=== PATIENT | male | born 1970 | race Caucasian/White ===

== ENCOUNTER 2017-08-28 21:00 | Inpatient (IN) | payer BC ==
[~2017-08-28] VITALS: Ht 180.3 cm; Wt 100.1 kg
[2017-08-28 21:02] VITALS: BP 140/88; PULSE 102; RESP 16; TEMP 98.9; O2SAT 98
[2017-08-28] MEDS ORDERED: MORPHINE SULFATE 4 MG/ML INJ IV PUSH ONE (22:30)
[2017-08-28] MEDS ORDERED: ONDANSETRON HCL 4 MG/2 ML VIAL IV ONE (22:30)
[2017-08-28] MEDS ORDERED: LIDOCAINE HCL 1% 50 ML VIAL INFIL ONE (22:30)
[2017-08-28] MEDS ORDERED: SODIUM CHLOR 0.9% 1000 ML INJ 1,000 ML IV ONE (22:30)
[2017-08-28] MEDS ORDERED: NEXI40CA PO (22:31)
[2017-08-28] MEDS ORDERED: DICL75TA PO (22:31)
[2017-08-28] MEDS ORDERED: ANDR1GEL2 TOPICAL (22:31)
[2017-08-28] MEDS ORDERED: DOXY1CAP74 PO (22:31)
[2017-08-28] MEDS ORDERED: MULT1TAB64 (22:31)
[2017-08-28] MEDS ORDERED: GLUC500C36 (22:31)
[2017-08-28] MEDS ORDERED: DICY20TA10 PO (22:31)
[2017-08-28] MEDS ORDERED: PRAV40TA2 PO (22:31)
[2017-08-28] MEDS ORDERED: KRIL1CAP10 (22:31)
[2017-08-28] MEDS ORDERED: BACT800T5 PO (22:31)
--- NOTE | 2017-08-28 23:02 | PD ---
HPI Chief Complaint: Cold / Flu Symptoms Time Seen by Provider: 22:15 Travel History International Travel<30 days: No Contact w/Intl Traveler<30days: No Traveled to known affect area: No History of Present Illness HPI Is a 47-year-old man who presents to the emergency department complaining of right elbow pain redness and swelling. He saw his doctor for 5 days ago and was diagnosed with a olecranon bursitis felt to be septic. He is been on Bactrim. He is also doctor in 2 days ago was placed on doxycycline. He had progressive worsening pain redness and swelling in the area, swelling started affect the arm itself. Today he started getting myalgias chills and fever. We' ll do nausea. No other complaints. History Past Medical History Narrative Medical Hyperlipidemia Tetanus Vaccination: < 5 Years Influenza Vaccination: Yes Past Surgical History Surgical History: No Previous Surgery Social History Alcohol Use: Yes (daily) Tobacco Use: No Allergies-Medications (Allergen,Severity, Reaction): Coded Allergies: atorvastatin (Verified Allergy, Unknown, hives, 08/28/17) ciprofloxacin (Verified Allergy, Unknown, facial swelling, 08/28/17) gluten (Verified Adverse Reaction, Unknown, 08/28/17) Reported Meds & Prescriptions Reported Meds & Active Scripts Active Reported Centrum Silver Men Tablet (Multivit-Min/FA/Lycopen/Lutein) 300 Mcg-600 Mcg-300 Mcg Tablet Glucosamine & Chondroitin Cap (Glucosa Sanchez 2Kcl/Chondroitin Sanchez) 500 Mg-400 Mg Capsule Krill Oil [place]-3 500 mg (Krill Oil) 500 Mg-115 Mg-30 Mg-64 Mg-167 Mg Cap Dicyclomine (Dicyclomine HCl) 20 Mg Tab 20 Mg PO Androgel Topical (Testosterone) 50 Mg/5 Gram (1 %) Gel 50 Mg TOPICAL DAILY Apply in the morning to the thighs. Nexium (Esomeprazole DR) 40 Mg Capdr 40 Mg PO DAILY Pravastatin 40 Mg Tab 40 Mg PO DAILY Diclofenac Sodium DR (Diclofenac Sodium) 75 Mg Tabdr 75 Mg PO BID Bactrim DS (Sulfamethoxazole-Trimethoprim) 800-160 Mg Tab 1 Tab PO BID Doxycycline 40 Mg Cap 100 Mg PO BID Review of Systems Except as stated in HPI: all other systems reviewed are Neg Physical Exam Narrative GENERAL: Well-appearing 47-year-old man, no acute distress. SKIN: Focused skin assessment warm/dry. HEAD: Atraumatic. Normocephalic. EYES: Pupils equal and round. No scleral icterus. No injection or drainage. ENT: No nasal bleeding or discharge. Mucous membranes pink and moist. NECK: Trachea midline. No JVD. CARDIOVASCULAR: Regular rate and rhythm. No murmur appreciated. RESPIRATORY: No accessory muscle use. Clear to auscultation. Breath sounds equal bilaterally. GASTROINTESTINAL: Abdomen soft, non-tender, nondistended. Hepatic and splenic margins not palpable. MUSCULOSKELETAL: No obvious deformities. Focal swelling of the olecranon bursa was some fluctuance with surrounding erythema redness and warmth extending into the proximal forearm within the brachium itself. Full range of motion without evidence of septic arthritis. NEUROLOGICAL: Awake and alert. No obvious cranial nerve deficits. Motor grossly within normal limits. Normal speech. PSYCHIATRIC: Appropriate mood and affect; insight and judgment normal. Data Data Last Documented VS Vital Signs Date Time Temp Pulse Resp B/P (MAP) Pulse Ox O2 Delivery O2 Flow Rate FiO2 08/28/17 21:02 98.9 102 16 140/88 (105) 98 Room Air Orders Orders Complete Blood Count With Diff (08/28/17 22:23) Comprehensive Metabolic Panel (08/28/17 22:23) Westergren Sedimentation Rate (08/28/17 22:23) C-Reactive Protein (Crp) (08/28/17 22:23) Synovial Fl Cell Count + Diff (08/28/17 22:23) Fluid Culture And Gram Stain (08/28/17 22:23) Iv Access Insert/Monitor (08/28/17 22:23) Sodium Chlor 0.9% 1000 Ml Inj (Ns 1000 M (08/28/17 22:30) Morphine Inj (Morphine Inj) (08/28/17 22:30) Ondansetron Inj (Zofran Inj) (08/28/17 22:30) Lidocaine 1% Inj (50 Ml) (Xylocaine 1% I (08/28/17 22:30) Clindamycin Inj (Cleocin Inj) (08/29/17 00:15) Admit Order (Ed Use Only) (08/29/17 ) Labs Laboratory Tests Test 08/28/17 22:50 08/28/17 23:00 White Blood Count 7.5 TH/MM3 Red Blood Count 4.64 MIL/MM3 Hemoglobin 14.5 GM/DL Hematocrit 42.6 % Mean Corpuscular Volume 91.7 FL Mean Corpuscular Hemoglobin 31.1 PG Mean Corpuscular Hemoglobin Concent 34.0 % Red Cell Distribution Width 13.5 % Platelet Count 238 TH/MM3 Mean Platelet Volume 7.5 FL Neutrophils (%) (Auto) 66.6 % Lymphocytes (%) (Auto) 21.1 % Monocytes (%) (Auto) 10.1 % Eosinophils (%) (Auto) 1.6 % Basophils (%) (Auto) 0.6 % Neutrophils # (Auto) 5.0 TH/MM3 Lymphocytes # (Auto) 1.6 TH/MM3 Monocytes # (Auto) 0.8 TH/MM3 Eosinophils # (Auto) 0.1 TH/MM3 Basophils # (Auto) 0.0 TH/MM3 CBC Comment DIFF FINAL Differential Comment Erythrocyte Sedimentation Rate 9 mm/hr Blood Urea Nitrogen 14 MG/DL Creatinine 1.12 MG/DL Random Glucose 101 MG/DL Total Protein 7.5 GM/DL Albumin 3.8 GM/DL Calcium Level 8.7 MG/DL Alkaline Phosphatase 71 U/L Aspartate Amino Transf (AST/SGOT) 12 U/L Alanine Aminotransferase (ALT/SGPT) 19 U/L Total Bilirubin 0.4 MG/DL Sodium Level 136 MEQ/L Potassium Level 4.4 MEQ/L Chloride Level 103 MEQ/L Carbon Dioxide Level 27.2 MEQ/L Anion Gap 6 MEQ/L Estimat Glomerular Filtration Rate 71 ML/MIN C-Reactive Protein 8.80 MG/DL [facility] Medical Decision Making Medical Screen Exam Complete: Yes Emergency Medical Condition: Yes Interpretation(s) LABS: CBC is unremarkable ESR is 9 CMP is unremarkable CRP 8.8 Differential Diagnosis Septic bursitis, cellulitis, infection, DVT, other Narrative Course Medical decision making This a 47-year-old man who presents emergency Department with septic bursitis with progressive worsening cellulitis. On outpatient miotics. Not improving. I drained the bursa here. Minimal fluid output. Took 2 or 3 sticks. Sent for culture. Procedures Procedure Narrative Aspiration of right olecranon bursa: The area was prepped with iodine. It was anesthetized 1% lidocaine plain. Using a 16-gauge needle, approximately 1 mL of bloody aspirate was obtained. Took total of 3 sticks and fluid was a little bit bloody. Patient tolerated overall well. Diagnosis Primary Impression: Septic bursitis of elbow Admitting Information Admitting Physician Requests: Admit Jerry Hardy MD Aug 28, 2017 23:02
[2017-08-28 23:34] LABS: BASOPHIL % 0.6 % (0.0-2.0); EOSINOPHIL # 0.1 TH/MM3 (0-0.4); EOSINOPHIL % 1.6 % (0.0-4.0); HEMATOCRIT 42.6 % (39.0-51.0); HEMO FLAGS DIFF FINAL; LYMPH % 21.1 % (9.0-44.0); LYMPHOCYTE # 1.6 TH/MM3 (1.0-4.8); MEAN CELL VOLUME 91.7 FL (80.0-100.0); MEAN CORPUSCULAR HEMOGLOBIN 31.1 PG (27.0-34.0); MONO % 10.1 % (0.0-8.0); NEUT % 66.6 % (16.0-70.0); PLATELET COUNT 238 TH/MM3 (150-450); RED BLOOD COUNT 4.64 MIL/MM3 (4.50-5.90); RED CELL DISTRIBUTION WIDTH 13.5 % (11.6-17.2); WHITE BLOOD COUNT 7.5 TH/MM3 (4.0-11.0)
[2017-08-28 23:55] LABS: ANION GAP 6 MEQ/L (5-15); AST (GOT) 12 U/L (15-37); BICARBONATE 27.2 MEQ/L (21.0-32.0); BLOOD UREA NITROGEN 14 MG/DL (7-18); CHLORIDE 103 MEQ/L (98-107); GLOMERULAR FILTRATION RATE 71 ML/MIN (>89); POTASSIUM 4.4 MEQ/L (3.5-5.1); SODIUM (NA) 136 MEQ/L (136-145)
[2017-08-28 23:58] LABS: ALKALINE PHOSPHATASE 71 U/L (45-117); ALT (GPT) 19 U/L (12-78); TOTAL BILIRUBIN ADULT 0.4 MG/DL (0.2-1.0)
[2017-08-29] VITALS (7 sets, daily range): BP systolic 100–132; BP diastolic 64–88; PULSE 70–99; RESP 16–18; TEMP 97.7–98.9; O2SAT 94–97
[2017-08-29] MEDS ORDERED: BISACODYL 10 MG SUPP RECTAL PRN (00:15)
[2017-08-29] MEDS ORDERED: SODIUM CHLORIDE 0.9% FLUSH 10 ML FLUSH IV FLUSH PRN (00:15)
[2017-08-29] MEDS ORDERED: ACETAMINOPHEN 325 MG TAB PO PRN (00:15)
[2017-08-29] MEDS ORDERED: ACETAMINOPHEN/HYDROcodone 325 MG/5 MG TAB PO PRN (00:15)
[2017-08-29] MEDS ORDERED: SODIUM CHLOR 0.9% 1000 ML INJ 1,000 ML IV ONE (00:15)
[2017-08-29] MEDS ORDERED: MAGNESIUM HYDROXIDE SUSP 30 ML CUP PO PRN (00:15)
[2017-08-29] MEDS ORDERED: LACTULOSE SYRUP 20 GM/30 ML CUP PO PRN (00:15)
[2017-08-29] MEDS ORDERED: CLINDAMYCIN INJ 600 MG in SODIUM CHLORIDE 0.9% INJ 100 ML IV ONE (00:15)
[2017-08-29] MEDS: MORPHINE SULFATE 4 MG/ML INJ IV PUSH PRN ×5 (00:59→22:43)
--- NOTE | 2017-08-29 01:10 | HHI.HP ---
[facility] Raymon Wolfe M.D. Admission Diagnosis cellulitis failing outpatient therapy, septic bursitis Diagnoses: (1) Septic bursitis of elbow Diagnosis: Principal (2) Failure of outpatient treatment Diagnosis: Principal (3) Dehydration Diagnosis: Principal Travel History International Travel<30 Days: No Contact w/Intl Traveler <30 Da: No Traveled to Known Affected Are: No History of Present Illness This is a 47-year-old male with a PMH of Hyperlipidemia presented to the ER with complaints of right elbow pain, redness and swelling for approx 1wk. Seen by PCP for similar symptoms approx 5 days ago and was started on Bactrim for Septic Olecranon Bursitis. Had ongoing pain/redness, seen again by PCP and switched to Doxycycline, however reports no significant improvement. Today, pt noted subjective fever/chills and instructed to come to ER for further evaluation. On arrival, BP 140/88, HR 102, O2 sat 98% on RA, Afebrile. CBC unremarkable. Chemistry essentially unremarkable except for GFR 71. CRP 8.8. ESR 9. S/p Joint aspiration in ER, results pending and s/p Clinda IV. Review of Systems Except as stated in HPI: all other systems reviewed are Neg ROS: 14 point review of systems otherwise negative. Past Family Social History Past Medical History PMH: Hyperlipidemia Past Surgical History PAST SURGICAL HISTORY: None Allergies: Coded Allergies: atorvastatin (Verified Allergy, Unknown, hives, 08/28/17) ciprofloxacin (Verified Allergy, Unknown, facial swelling, 08/28/17) gluten (Verified Adverse Reaction, Unknown, 08/28/17) Family History PAST FAMILY HISTORY: Reviewed. No h/o DM or CAD Social History PAST SOCIAL HISTORY: Positive for a cough. Negative for tobacco or drugs. Physical Exam Vital Signs Vital Signs Date Time Temp Pulse Resp B/P (MAP) Pulse Ox O2 Delivery O2 Flow Rate FiO2 08/29/17 00:14 98.9 86 16 118/67 (84) 94 Room Air 08/28/17 21:02 98.9 102 16 140/88 (105) 98 Room Air Physical Exam PE: GENERAL: Pleasant young white male in no acute distress. HEENT: PERRLA, EOMI. No scleral icterus or conjunctival pallor. No lid lag or facial droop. CARDIOVASCULAR: Regular rate and rhythm. No obvious murmurs to auscultation. No chest tenderness to palpation. RESPIRATORY: No obvious rhonchi or wheezing. Clear to auscultation. Breath sounds equal bilaterally. GASTROINTESTINAL: Abdomen soft, non-tender, nondistended. BS normal. MUSCULOSKELETAL: Extremities without clubbing, cyanosis, or edema. No obvious deformities. Right elbow swelling/erythema, mildly decreased ROM due to pain. NEUROLOGICAL: Awake, alert and oriented x4. No focal neurologic deficits. Moving both upper and lower extremities spontaneously. Laboratory Laboratory Tests Test 08/28/17 22:50 08/28/17 23:00 White Blood Count 7.5 Red Blood Count 4.64 Hemoglobin 14.5 Hematocrit 42.6 Mean Corpuscular Volume 91.7 Mean Corpuscular Hemoglobin 31.1 Mean Corpuscular Hemoglobin Concent 34.0 Red Cell Distribution Width 13.5 Platelet Count 238 Mean Platelet Volume 7.5 Neutrophils (%) (Auto) 66.6 Lymphocytes (%) (Auto) 21.1 Monocytes (%) (Auto) 10.1 Eosinophils (%) (Auto) 1.6 Basophils (%) (Auto) 0.6 Neutrophils # (Auto) 5.0 Lymphocytes # (Auto) 1.6 Monocytes # (Auto) 0.8 Eosinophils # (Auto) 0.1 Basophils # (Auto) 0.0 CBC Comment DIFF FINAL Differential Comment Erythrocyte Sedimentation Rate 9 Blood Urea Nitrogen 14 Creatinine 1.12 Random Glucose 101 Total Protein 7.5 Albumin 3.8 Calcium Level 8.7 Alkaline Phosphatase 71 Aspartate Amino Transf (AST/SGOT) 12 Alanine Aminotransferase (ALT/SGPT) 19 Total Bilirubin 0.4 Sodium Level 136 Potassium Level 4.4 Chloride Level 103 Carbon Dioxide Level 27.2 Anion Gap 6 Estimat Glomerular Filtration Rate 71 C-Reactive Protein 8.80 Date/Time Source Procedure Growth Status 08/28/17 23:00 Fluid Synovial Fluid Gram Stain Pending Received 08/28/17 23:00 Fluid Synovial Fluid Body Fluid Culture Pending Received Result Diagram: 08/28/17224908/28/172249 Caprini VTE Risk Assessment Caprini VTE Risk Assessment: No/Low Risk (score <= 1) Caprini Risk Assessment Model Point Value = 1 Point Value = 2 Point Value = 3 Point Value = 5 Age 41-60 Minor surgery BMI > 25 kg/m2 Swollen legs Varicose veins or History of unexplained or recurrent spontaneous Oral contraceptives or hormone replacement Sepsis (< 1 month) Serious lung disease, including pneumonia (< 1 month) Abnormal pulmonary function Acute myocardial infarction Congestive heart failure (< 1 month) History of inflammatory bowel disease Medical patient at bed rest Age 61-74 Arthroscopic surgery Major open surgery (> 45 min) Laparoscopic surgery (> 45 min) Malignancy Confined to bed (> 72 hours) Immobilizing plaster cast Central venous access Age >= 75 History of VTE Family history of VTE Factor V Leiden Prothrombin [id number] Lupus anticoagulant Anticardiolipin antibodies Elevated serum homocysteine Heparin-induced thrombocytopenia Other congenital or acquired thrombophilia Stroke (< 1 month) Elective arthroplasty Hip, pelvis, or leg fracture Acute spinal cord injury (< 1 month) Prophylaxis Regimen Total Risk Factor Score Risk Level Prophylaxis Regimen 0-1 Low Early ambulation 2 Moderate Order ONE of the following: *Sequential Compression Device (SCD) *Heparin 5000 units SQ BID 3-4 Higher Order ONE of the following medications: *Heparin 5000 units SQ TID *Enoxaparin/Lovenox 40 mg SQ daily (WT < 150 kg, CrCl > 30 mL/min) *Enoxaparin/Lovenox 30 mg SQ daily (WT < 150 kg, CrCl > 10-29 mL/min) *Enoxaparin/Lovenox 30 mg SQ BID (WT < 150 kg, CrCl > 30 mL/min) AND/OR *Sequential Compression Device (SCD) 5 or more Highest Order ONE of the following medications: *Heparin 5000 units SQ TID (Preferred with Epidurals) *Enoxaparin/Lovenox 40 mg SQ daily (WT < 150 kg, CrCl > 30 mL/min) *Enoxaparin/Lovenox 30 mg SQ daily (WT < 150 kg, CrCl > 10-29 mL/min) *Enoxaparin/Lovenox 30 mg SQ BID (WT < 150 kg, CrCl > 30 mL/min) AND *Sequential Compression Device (SCD) Assessment and Plan Problem List: (1) Septic bursitis of elbow ICD Code: M71.129 - Other infective bursitis, unspecified elbow Status: Acute (2) Failure of outpatient treatment ICD Code: Z78.9 - Other specified health status (3) Dehydration ICD Code: E86.0 - Dehydration Assessment and Plan A/P: 1. Septic Bursitis: Right Elbow, ongoing redness/swelling, s/p Joint Aspiration in ER and Clinda IV, follow up results, continue IV Abx, Consult Ortho for further eval/recommendations. CRP 8.80, will trend. ESR normal. 2. Failed Outpatient Tx: started on Bactrim approx 5 days ago w/ no improvement, then switched to Doxycycline. Will continue w/ IV Clinda as above. 3. Dehydration: GFR 71, BUN/Creat normal. IVF for hydration, repeat labs in am. 4. DVT Prophylaxis: SCD/TEds. 5. Social work for d/c planning as needed. 6. Case discussed w/ ER physician at length Physician Certification 2 Midnight Certification Type: Admission for Inpatient Services Order for Inpatient Services The services are ordered in accordance with Medicare regulations or non- Medicare payer requirements, as applicable. In the case of services not specified as inpatient-only, they are appropriately provided as inpatient services in accordance with the 2-midnight benchmark. Estimated LOS (days): 2 days is the estimated time the patient will need to remain in the hospital, assuming treatment plan goals are met and no additional complications. Post-Hospital Plan: Not yet determined Lori Sierra MD Aug 29, 2017 01:10
[2017-08-29 01:13] LABS: WBC, SYNOVIAL FLUID 4000 /MM3 (0-200)
[2017-08-29] MEDS: ONDANSETRON HCL 4 MG/2 ML VIAL IVP PRN (02:21)
[2017-08-29] MEDS: SODIUM CHLORIDE 0.9% FLUSH 10 ML FLUSH IV FLUSH SCH ×2 (08:29→22:41)
[2017-08-29] MEDS: CLINDAMYCIN INJ 900 MG in SODIUM CHLORIDE 0.9% INJ 100 ML IV SCH ×2 (08:29→16:33)
[2017-08-29 08:34] LABS: RED BLOOD COUNT 4.24 MIL/MM3 (4.50-5.90); WHITE BLOOD COUNT 6.4 TH/MM3 (4.0-11.0)
[2017-08-29 08:35] LABS: AUTOMATED NEUTROPHIL # 3.4 TH/MM3 (1.8-7.7); BASOPHIL % 0.7 % (0.0-2.0); EOSINOPHIL # 0.2 TH/MM3 (0-0.4); EOSINOPHIL % 2.4 % (0.0-4.0); HEMATOCRIT 39.1 % (39.0-51.0); HEMO FLAGS DIFF FINAL; LYMPH % 31.1 % (9.0-44.0); MEAN CELL VOLUME 92.2 FL (80.0-100.0); MEAN CORPUSCULAR HEMOGLOBIN 31.4 PG (27.0-34.0); MEAN CORPUSCULAR HGB CONC 34.1 % (32.0-36.0); MONO % 12.4 % (0.0-8.0); NEUT % 53.4 % (16.0-70.0); PLATELET COUNT 209 TH/MM3 (150-450); RED CELL DISTRIBUTION WIDTH 12.8 % (11.6-17.2)
[2017-08-29] MEDS: PANTOPRAZOLE SOD 40 MG DELAYED RELEASE TAB PO SCH (08:36)
[2017-08-29 08:55] LABS: ALKALINE PHOSPHATASE 58 U/L (45-117); ALT (GPT) 16 U/L (12-78); ANION GAP 7 MEQ/L (5-15); AST (GOT) 11 U/L (15-37); BICARBONATE 24.2 MEQ/L (21.0-32.0); BLOOD UREA NITROGEN 14 MG/DL (7-18); CHLORIDE 108 MEQ/L (98-107); GLOMERULAR FILTRATION RATE 84 ML/MIN (>89); POTASSIUM 4.3 MEQ/L (3.5-5.1); SODIUM (NA) 139 MEQ/L (136-145); TOTAL BILIRUBIN ADULT 0.5 MG/DL (0.2-1.0)
[2017-08-29] MEDS ORDERED: TESTOSTERONE 50 MG TOPICAL SCH (09:00)
[2017-08-29] MEDS ORDERED: DOCUSATE SODIUM 50 MG/SENNA 8.6 MG TAB PO SCH (09:00)
--- NOTE | 2017-08-29 19:03 | MB ---
cc: CORDELL WALKER M.D. DATE OF CONSULTATION 08/29/2017 REASON FOR CONSULTATION Requested to evaluate right elbow infectious bursitis. HISTORY OF THE PRESENT ILLNESS Shaw Madison is a 47-year-old male who developed an infectious bursitis in his right elbow approximately one week ago. He was treated at Urgent Care initiated on Bactrim and subsequently seen by his primary care physician who added doxycycline. He had ongoing pain and swelling in his elbow and therefore presented to [facility] and was admitted to the medical service with consultation placed with the undersigned. His white blood cell count on admission in the ER was 7.5 yesterday and it was 6.4 today. He is currently receiving clindamycin IV. In the ER he was aspirated and this revealed an elevated white blood cell count and a culture is pending. PHYSICAL EXAMINATION GENERAL: The patient is alert, oriented, appropriate. His father is at the bedside. EXTREMITIES: His left upper extremities benign. His right upper extremity shows full range of motion of the shoulder, elbow, wrist with some mild limitation in deep flexion of the elbow secondary to ____ posterior aspect of his elbow where he has a 3 x 3 cm x 1.5 cm swollen, erythematous region which is mildly tender to palpation which consistent with olecranon bursitis. He has a small puncture wound with no active drainage. ASSESSMENT Right elbow olecranon bursitis. MEDICAL DECISION MAKING He is an otherwise healthy individual. He has no past surgery history. His only medical history is hyperlipidemia. He does report allergies to Cipro, gluten and Atorvastatin. His social history is negative for alcohol, tobacco and drugs. The recommendation at this time is conservative care. He has full range of motion of the elbow. He should respond to IV antibiotics. He potentially could have another aspiration of the elbow. I would not recommend surgical intervention for drainage at this time as it is not significantly enlarged. Ultimately long-term if it is not controlled and surgical intervention remains a consideration. All of this discussed with the patient and all his questions were answered. MD TAO Aguirre/GIULIANA /3:24 PM /6:47 PM
[2017-08-29] MEDS: SENNOSIDES 8.6 MG TAB PO PRN (22:42)
[2017-08-30] VITALS: BP 106/67; PULSE 84; RESP 18; TEMP 98.4; O2SAT 95
[2017-08-30] MEDS: CLINDAMYCIN INJ 900 MG in SODIUM CHLORIDE 0.9% INJ 100 ML IV SCH ×3 (00:30→15:03)
[2017-08-30] MEDS: MORPHINE SULFATE 4 MG/ML INJ IV PUSH PRN ×3 (02:57→13:30)
[2017-08-30 06:00] VITALS: BP 111/60; PULSE 65; RESP 18; TEMP 98.1; O2SAT 96
[2017-08-30 08:53] VITALS: BP 118/75; PULSE 86; RESP 18; TEMP 97.9; O2SAT 97
[2017-08-30] MEDS: SODIUM CHLORIDE 0.9% FLUSH 10 ML FLUSH IV FLUSH SCH ×2 (08:55→21:00)
[2017-08-30] MEDS: PANTOPRAZOLE SOD 40 MG DELAYED RELEASE TAB PO SCH (08:55)
[2017-08-30] MEDS: ONDANSETRON HCL 4 MG/2 ML VIAL IVP PRN (09:01)
[2017-08-30] MEDS: SENNOSIDES 8.6 MG TAB PO PRN (10:49)
[2017-08-30 13:15] VITALS: BP 117/76; PULSE 74; RESP 18; TEMP 97.8; O2SAT 95
[2017-08-30] MEDS ORDERED: MORPHINE SULFATE 4 MG/ML INJ IV PUSH PRN (14:45)
--- NOTE | 2017-08-30 14:47 | HHI.PR ---
Subjective Remarks Feels slightly better today. Elbow is less tight but swelling persist. Objective Vitals Vital Signs Date Time Temp Pulse Resp B/P (MAP) Pulse Ox O2 Delivery O2 Flow Rate FiO2 08/30/17 13:15 97.8 74 18 117/76 (90) 95 08/30/17 08:53 97.9 86 18 118/75 (89) 97 08/30/17 06:00 98.1 65 18 111/60 (77) 96 08/30/17 00:00 98.4 84 18 106/67 (80) 95 08/29/17 20:00 97.9 99 18 127/88 (101) 97 08/29/17 19:10 18 08/29/17 16:36 98.7 83 18 114/71 (85) 96 I/O 08/29/17 08/29/17 08/29/17 08/30/17 08/30/17 08/30/17 07:00 15:00 23:00 07:00 15:00 23:00 Intake Total 1000 ml 1300 ml Balance 1000 ml 1300 ml Intake Oral 480 ml IV Total 1000 ml 820 ml # Voids 1 3 3 # Bowel Movements 0 Result Diagram: 08/29/17 0700 08/29/17 0700 A/P Problem List: (1) Septic bursitis of elbow ICD Code: M71.129 - Other infective bursitis, unspecified elbow Status: Acute (2) Failure of outpatient treatment ICD Code: Z78.9 - Other specified health status (3) Dehydration ICD Code: E86.0 - Dehydration Assessment and Plan 47-year-old male admitted with right elbow infectious olecranon bursitis. Failed outpatient treatment. - Culture grew MSSA, sensitive to clindamycin. Continue IV clindamycin. - Patient evaluated by orthopedics, advised continuing IV antibiotics, potentially could have another aspiration. - Some improvement noted on his symptoms but on exam no significant change today compared to yesterday. We'll continue IV antibiotics today and follow-up further recommendations from orthopedics whether or not repeat aspiration is warranted. If no further aspiration, the patient can potentially go home tomorrow on oral clindamycin. 4. DVT Prophylaxis: SCD/TEds. Patient is ambulatory Lidia Dominique MD Aug 30, 2017 14:47
[2017-08-30 16:46] VITALS: BP 115/70; PULSE 71; RESP 18; TEMP 98.2; O2SAT 96
--- NOTE | 2017-08-30 17:55 | PD.ORT.PN ---
Subjective Subjective Remarks Patient comfortable. Pain controlled. Objective Vitals Vital Signs Date Time Temp Pulse Resp B/P (MAP) Pulse Ox O2 Delivery O2 Flow Rate FiO2 08/30/17 16:46 98.2 71 18 115/70 (85) 96 08/30/17 13:15 97.8 74 18 117/76 (90) 95 08/30/17 08:53 97.9 86 18 118/75 (89) 97 08/30/17 06:00 98.1 65 18 111/60 (77) 96 08/30/17 00:00 98.4 84 18 106/67 (80) 95 08/29/17 20:00 97.9 99 18 127/88 (101) 97 08/29/17 19:10 18 I/O 08/29/17 08/29/17 08/29/17 08/30/17 08/30/17 08/30/17 07:00 15:00 23:00 07:00 15:00 23:00 Intake Total 1000 ml 1300 ml 106 ml 960 ml Balance 1000 ml 1300 ml 106 ml 960 ml Intake Oral 480 ml 960 ml IV Total 1000 ml 820 ml 106 ml # Voids 1 3 3 4 # Bowel Movements 0 1 Result Diagram: 08/29/17 0700 08/29/17 0700 Objective Remarks Right upper extremity full range of motion of the shoulder, elbow, wrist mild limitation in deep flexion of the elbow secondary to swelling posterior aspect of elbow 3 x 3 cm x 1.5 cm swollen, erythematous region, mildly tender to palpation small puncture wound with no active drainage distally motor, neuro and sensory intact Assessment & Plan Assessment and Plan Right elbow olecranon bursitis. Recommendation at this time is conservative care ID management Pain management Continue IV antibiotic therapy Long-term if it is not controlled and surgical intervention remains a consideration. D/C planning - anticipating home Monitor Saúl Lauren Aug 30, 2017 17:55
[2017-08-30] MEDS: oxyCODONE/ACETAMINOPHEN 5 MG/325 MG TAB PO PRN (20:09)
[2017-08-31] MEDS: SENNOSIDES 8.6 MG TAB PO PRN (00:35)
[2017-08-31] MEDS: oxyCODONE/ACETAMINOPHEN 5 MG/325 MG TAB PO PRN ×3 (00:35→14:30)
[2017-08-31] MEDS: CLINDAMYCIN INJ 900 MG in SODIUM CHLORIDE 0.9% INJ 100 ML IV SCH ×3 (00:36→16:13)
[2017-08-31 01:34] VITALS: BP 114/74; PULSE 72; RESP 20; TEMP 97.5; O2SAT 93
[2017-08-31 05:56] VITALS: BP 100/62; PULSE 65; RESP 20; TEMP 97.3; O2SAT 96
[2017-08-31 07:49] LABS: MEAN CELL VOLUME 91.4 FL (80.0-100.0); MEAN CORPUSCULAR HEMOGLOBIN 31.4 PG (27.0-34.0); MEAN CORPUSCULAR HGB CONC 34.4 % (32.0-36.0); PLATELET COUNT 249 TH/MM3 (150-450); RED CELL DISTRIBUTION WIDTH 12.9 % (11.6-17.2); REVIEW FLAG FINAL; WHITE BLOOD COUNT 4.9 TH/MM3 (4.0-11.0)
[2017-08-31 08:00] VITALS: BP 119/76; PULSE 78; RESP 20; TEMP 99.1; O2SAT 95
[2017-08-31] MEDS: PANTOPRAZOLE SOD 40 MG DELAYED RELEASE TAB PO SCH (08:14)
[2017-08-31] MEDS: SODIUM CHLORIDE 0.9% FLUSH 10 ML FLUSH IV FLUSH SCH (08:14)
[2017-08-31 12:00] VITALS: BP 116/65; PULSE 69; RESP 20; TEMP 97.5; O2SAT 95
[2017-08-31] MEDS ORDERED: OXYC1TAB63 PO ×3 (15:25→16:17)
[2017-08-31] MEDS ORDERED: CLIN1CAP6 PO ×2 (15:25→16:15)
--- NOTE | 2017-08-31 15:25 | HHI.DS ---
Discharge Summary Admission Date Aug 29, 2017 at 00:11 Discharge Date: Aug 31, 2017 Admitting Diagnosis cellulitis failing outpatient therapy, septic bursitis (1) Septic bursitis of elbow ICD Code: M71.129 - Other infective bursitis, unspecified elbow Status: Acute (2) Failure of outpatient treatment ICD Code: Z78.9 - Other specified health status (3) Dehydration ICD Code: E86.0 - Dehydration Procedures None Brief History - From Admission History of present illness from the admitting physician This is a 47-year-old male with a PMH of Hyperlipidemia presented to the ER with complaints of right elbow pain, redness and swelling for approx 1wk. Seen by PCP for similar symptoms approx 5 days ago and was started on Bactrim for Septic Olecranon Bursitis. Had ongoing pain/redness, seen again by PCP and switched to Doxycycline, however reports no significant improvement. Today, pt noted subjective fever/chills and instructed to come to ER for further evaluation. On arrival, BP 140/88, HR 102, O2 sat 98% on RA, Afebrile. CBC unremarkable. Chemistry essentially unremarkable except for GFR 71. CRP 8.8. ESR 9. S/p Joint aspiration in ER, results pending and s/p Clinda IV. CBC/BMP: 08/31/17 0643 08/29/17 0700 Significant Findings Laboratory Tests Test 08/28/17 22:50 08/28/17 23:00 08/29/17 07:00 08/31/17 06:43 Monocytes (%) (Auto) 10.1 % (0.0-8.0) 12.4 % (0.0-8.0) Aspartate Amino Transf (AST/SGOT) 12 U/L (15-37) 11 U/L (15-37) Estimat Glomerular Filtration Rate 71 ML/MIN (>89) 84 ML/MIN (>89) C-Reactive Protein 8.80 MG/DL (0.00-0.30) 7.80 MG/DL (0.00-0.30) 6.50 MG/DL (0.00-0.30) Synovial Fluid Color RED (STRAW) Synovial Fluid Appearance MARKED (CLEAR) Synovial Fluid WBC 4000 /MM3 (0-200) Synovial Fluid RBC 600316 /MM3 (0-0) Synovial Fluid Neutrophils 94 % (0-25) Red Blood Count 4.24 MIL/MM3 (4.50-5.90) Total Protein 6.3 GM/DL (6.4-8.2) Albumin 3.1 GM/DL (3.4-5.0) Calcium Level 8.1 MG/DL (8.5-10.1) Chloride Level 108 MEQ/L (98-107) PE at Discharge GENERAL: This is a well-nourished, well-developed patient, in no apparent distress. CARDIOVASCULAR: Normal rate and regular rhythm without murmurs, gallops, or rubs. MUSCULOSKELETAL: Right elbow with some mild olecranon effusion. Much less erythema. No streaking or expanding erythema. Range of motion is somewhat limited due to pain but for the most part he can move it freely.. NEURO: Alert & Oriented x4 to person, place, time, situation. Moves all ext x4 PSYCH: Appropriate mood and affect. Pt update on day of discharge Patient reports is feeling okay. Better range of motion. Pain is controlled. Right elbow swelling is improved. Hospital Course 47-year-old male admitted with right elbow infectious olecranon bursitis. Failed outpatient treatment. Fluid culture grew MSSA which is sensitive to clindamycin. Patient was treated with IV clindamycin. He was evaluated by orthopedics who advised conservative measures with antibiotics. Patient symptoms improved. He is discharge to continue treatment with clindamycin. He is advised to follow-up outpatient with orthopedics, especially if swelling is not improving or getting worse as he may possibly need repeat aspiration. Pt Condition on Discharge: Good Discharge Disposition: Discharge Home Discharge Time: <= 30 minutes Discharge Instructions DIET: Follow Instructions for: As Tolerated, No Restrictions Activities you can perform: Regular-No Restrictions Follow up Referrals: PCP Follow-up - 1 Week New Medications: Clindamycin (Clindamycin) 300 Mg Cap 300 MG PO TID for Infection, #21 CAP 0 Refills Oxycodone-Acetaminophen (Oxycodone-Acetaminophen) 5-325 mg Tab 1 TAB PO Q4H PRN for PAIN GREATER THAN 5, #15 TAB Continued Medications: Diclofenac Sodium DR (Diclofenac Sodium DR) 75 Mg Tabdr 75 MG PO BID, #60 TAB 0 Refills Dicyclomine (Dicyclomine) 20 Mg Tab 20 MG PO for Bowel Management, #120 TAB [address] (Nexium) 40 Mg Capdr 40 MG PO DAILY, CAP 0 Refills Glucosa Sanchez 2Kcl/Chondroitin Sanchez (Glucosamine & Chondroitin Cap) 500 Mg-400 Mg Capsule Krill Oil (Krill Oil [place]-3 500 mg) 500 Mg-115 Mg-30 Mg-64 Mg-167 Mg Cap Multivit-Min/FA/Lycopen/Lutein (Centrum Silver Men Tablet) 300 Mcg-600 Mcg-300 Mcg Tablet Pravastatin (Pravastatin) 40 Mg Tab 40 MG PO DAILY for Cholesterol Management, #30 TAB 0 Refills Testosterone Topical (Androgel Topical) 50 Mg/5 Gram (1 %) Gel 50 MG TOPICAL DAILY for Hormone Replacement, #1 TUBE 0 Refills Apply in the morning to the thighs. Discontinued Medications: Doxycycline (Doxycycline) 40 Mg Cap 100 MG PO BID for Infection, CAP 0 Refills Sulfamethoxazole-Trimethoprim (Bactrim DS) 800-160 Mg Tab 1 TAB PO BID for Infection, TAB 0 Refills Lidia Dominique MD Aug 31, 2017 15:25
[2017-08-31 16:00] VITALS: BP 117/80; PULSE 74; RESP 20; TEMP 97.9; O2SAT 96
--- NOTE | 2017-08-31 17:41 | PD.ORT.PN ---
Subjective Subjective Remarks Patient comfortable. Pain improving. Spouse at bedside. Objective Vitals Vital Signs Date Time Temp Pulse Resp B/P (MAP) Pulse Ox O2 Delivery O2 Flow Rate FiO2 08/31/17 16:00 97.9 74 20 117/80 (92) 96 08/31/17 12:00 97.5 69 20 116/65 (82) 95 08/31/17 08:00 99.1 78 20 119/76 (90) 95 08/31/17 05:56 97.3 65 20 100/62 (75) 96 08/31/17 01:34 97.5 72 20 114/74 (87) 93 I/O 08/30/17 08/30/17 08/30/17 08/31/17 08/31/17 08/31/17 07:00 15:00 23:00 07:00 15:00 23:00 Intake Total 106 ml 960 ml 360 ml Balance 106 ml 960 ml 360 ml Intake Oral 960 ml 360 ml IV Total 106 ml # Voids 3 4 1 5 # Bowel Movements 1 1 1 Result Diagram: 08/31/17 0643 08/29/17 0700 Objective Remarks Right elbow full range of motion of the shoulder, elbow, wrist swelling improving throughout upper and lower arm erythematous region improving, mildly tender to palpation no active drainage noted distally motor, neuro and sensory intact Assessment & Plan Assessment and Plan Right elbow olecranon bursitis. Wound cx - Staph aureus Recommendation at this time is conservative care ID management Pain management Continue IV antibiotic therapy Long-term if it is not controlled and surgical intervention remains a consideration. Orthopedically stable for discharge Plan is to continue with PO antibiotic after discharge. D/C planning - anticipating home F/U as needed basis. Saúl Lauren Aug 31, 2017 17:41
== END 2017-08-31 18:21 | disposition home or self-care (01) | DRG 558 ==
LOC: NEPC 21:00 → NEDA 08-29 00:11 → N05A 08-29 01:46
PROVIDERS: ADMIT Family Medicine; ATTEND Family Medicine
PROC: 0M933ZZ Drainage of Right Elbow Bursa and Ligament, Percutaneous Approach (ICD-10-PCS; principal; 2017-08-28)
DX: M71.121 Other infective bursitis, right elbow (principal); B95.61 Methicillin susceptible Staphylococcus aureus infection as the cause of diseases classified elsewhere; E86.0 Dehydration; E78.5 Hyperlipidemia, unspecified; Z23 Encounter for immunization
CPT/HCPCS: 20605; 80053; 85025; 85027; 85652; 86140; 87070; 87077; 87186; 87205; 89051; 96361; 96374; 96375; J2270; J2405; J7030